=== PATIENT | female | born 1975 | race Caucasian/White ===

== ENCOUNTER 2020-02-26 02:21 | Emergency (ER) | payer OTHER ==
[~2020-02-26] VITALS: Ht 160 cm; Wt 56.7 kg
[2020-02-26 02:31] VITALS: Ht 160 cm; Wt 56.7 kg
[2020-02-26 03:24] VITALS: BP 125/78
== END 2020-02-26 03:24 | disposition home or self-care (01) ==
LOC: ED 02:21
DX: H10.212 Acute toxic conjunctivitis, left eye (principal); M79.7 Fibromyalgia
CPT/HCPCS: J7030; V2632